=== PATIENT | female | born 2000 | race Caucasian/White ===

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

== ENCOUNTER 2020-02-19 12:38 | Emergency (ER) | payer BC ==
[2020-02-19] MEDS ORDERED: Sodium Chloride 0.9% 10 ML Syringe FLUSH PRN (12:50)
[2020-02-19] MEDS ORDERED: Sodium Chloride 0.9% 2.5 ML Syringe FLUSH PRN (12:50)
[2020-02-19] MEDS ORDERED: Ketorolac 30 MG/ML SDV IVPUSH ONE (12:52)
[2020-02-19] MEDS ORDERED: Ondansetron 4 MG/2 ML SDV IVPUSH ONE (12:55)
[2020-02-19] MEDS ORDERED: Acetaminophen/HYDROcodone 325-10 MG Tab PO ONE (12:57)
--- NOTE | 2020-02-19 12:59 | EDM.PDOC ---
ED HPI GENERAL MEDICAL PROBLEM - General Chief Complaint: Abdominal Pain Stated Complaint: ABDOMINAL AND BACK PAIN Time Seen by Provider: 02/19/20 12:43 - History of Present Illness INITIAL COMMENTS - FREE TEXT/NARRATIVE: History of present illness: [] Patient developed pain in the left lower quadrant yesterday. It became increasingly severe today it is constant and the gradual crescendo. Radiates to the left flank. Now it is a lot worse with movement. She is thrown up twice but not really nauseated. She thinks the vomiting was because of the pain. She has no change in bowel or bladder habits. She is breast-feeding and has not had a menstrual period nor had sexual contact since she had a baby 11 months ago. He was told she had crystals in his urine and might develop kidney stones shortly after the . Review of systems: As per history of present illness and below otherwise all systems reviewed and negative. Past medical history: As per history of present illness and as reviewed below otherwise noncontributory. Surgical history: As per history of present illness and as reviewed below otherwise noncontributory. Social history: No reported history of drug or alcohol abuse. Family history: As per history of present illness and as reviewed below otherwise noncontributory. Physical exam: Constitutional - well developed, well-nourished and in no acute distress HEENT - normocephalic, no evidence of trauma - external nose and mouth normal - no mass in neck and no JVD - mucosae moist EYES - full EOM, PERRL, no icterus - no evidence of inflammation, injection, or drainage Respiratory - no respiratory distress, equal bilateral expansion, lungs clear to auscultation and no abnormal lung sounds Cardiovascular - Regular Rhythm with S1 and S2 appreciated and no murmur, gallop or rub. GI - abdomen is in the suprapubic area both lower quadrants. Soft without distension or organomegaly - normal bowel sounds - no guard or rebound -bi manual exam there is some tenderness around the left adnexa but the cervix uterus and right adnexa are not tender. The abdomen above the knee of the adnexa is more tender than the adnexa. Musculoskeletal no gross deformity of long bones or joints - no tenderness, swelling or edema Neurologic - Alert and oriented times four - CN II-XII grossly intact - motor sensory and coordination symmetrically normal Psychiatric - appropriate mood and affect with normal thought content Hematologic - No petechiae or purpura - mucosa appropriate color and sclera not pale - normal nail bed color and refill Integument - no rash or evidence of trauma - normal turgor Diagnostics: [] Therapeutics: [] Impression: [] Plan: [] Definitive disposition and diagnosis as appropriate pending reevaluation and review of above. llq Pain Score (Numeric/FACES): 9 - Related Data Allergies Allergy/AdvReac Type Severity Reaction Status Date / Time No Known Allergies Allergy Verified 02/19/20 13:02 Home Meds: Home Meds Acetaminophen/HYDROcodone [[place] 325-7.5 MG] 1 - 2 tab PO Q6H PRN #14 tab 02/19/20 [Rx] Tamsulosin [Tamsulosin 24 Hr] 0.4 mg PO DAILY #15 cap.er 02/19/20 [Rx] ED ROS GENERAL - Review of Systems Review Of Systems: Comprehensive ROS is negative, except as noted in HPI. ED EXAM, GENERAL - Physical Exam Exam: See Below Free Text/Narrative:: Physical exam as in the HPI Course - Vital Signs Last Recorded V/S: Last Vital Signs Temp 36.6 C 02/19/20 14:48 Pulse 64 02/19/20 14:48 Resp 16 02/19/20 14:48 BP 107/66 02/19/20 14:48 Pulse Ox 100 02/19/20 14:48 - Orders/Labs/Meds Orders: Active Orders 24 hr Category Date Time Status Saline Lock Insert [OM.PC] Stat Oth 02/19/20 12:50 Ordered Labs: Laboratory Tests 02/19/20 02/19/20 02/19/20 Range/Units 12:49 12:49 12:49 WBC 6.65 (4.0-11.0) K/uL RBC 4.41 (4.30-5.90) M/uL Hgb 12.5 (12.0-16.0) g/dL Hct 39.3 (36.0-46.0) % MCV 89.1 (80.0-98.0) fL MCH 28.3 (27.0-32.0) pg MCHC 31.8 (31.0-37.0) g/dL RDW Std Deviation 42.1 (28.0-62.0) fl RDW Coeff of Sadaf 13 (11.0-15.0) % Plt Count 353 (150-400) K/uL MPV 9.70 (7.40-12.00) fL Neut % (Auto) 52.6 (48.0-80.0) % Lymph % (Auto) 34.3 (16.0-40.0) % [place] % (Auto) 8.1 (0.0-15.0) % Eos % (Auto) 4.5 (0.0-7.0) % Baso % (Auto) 0.5 (0.0-1.5) % Neut # (Auto) 3.5 (1.4-5.7) K/uL Lymph # (Auto) 2.3 (0.6-2.4) K/uL [place] # (Auto) 0.5 (0.0-0.8) K/uL Eos # (Auto) 0.3 (0.0-0.7) K/uL Baso # (Auto) 0.0 (0.0-0.1) K/uL Nucleated RBC % 0.0 /100WBC Nucleated RBCs # 0 K/uL Sodium 142 (136-145) mmol/L Potassium 4.1 (3.5-5.1) mmol/L Chloride 105 (98-107) mmol/L Carbon Dioxide 29.4 (21.0-32.0) mmol/L BUN 14 (7.0-18.0) mg/dL Creatinine 1.0 (0.6-1.0) mg/dL Est Cr Clr Drug Dosing 69.51 mL/min Estimated GFR (MDRD) > 60.0 ml/min Glucose 85 (74-106) mg/dL Calcium 9.3 (8.5-10.1) mg/dL Total Bilirubin 0.5 (0.2-1.0) mg/dL AST 21 (15-37) IU/L ALT 23 (14-63) IU/L Alkaline Phosphatase 94 (46-116) U/L Total Protein 7.4 (6.4-8.2) g/dL Albumin 4.1 (3.4-5.0) g/dL Globulin 3.3 (2.6-4.0) g/dL Albumin/Globulin Ratio 1.2 (0.9-1.6) Urine Color YELLOW Urine Appearance CLEAR Urine pH 6.0 (5.0-8.0) Ur Specific [place] 1.025 (1.001-1.035) Urine Protein NEGATIVE (NEGATIVE) mg/dL Urine Glucose (UA) NEGATIVE (NEGATIVE) mg/dL Urine Ketones NEGATIVE (NEGATIVE) mg/dL Urine Occult Blood LARGE H (NEGATIVE) Urine Nitrite NEGATIVE (NEGATIVE) Urine Bilirubin NEGATIVE (NEGATIVE) Urine Urobilinogen 0.2 (<2.0) EU/dL Ur Leukocyte Esterase NEGATIVE (NEGATIVE) Urine RBC 5-10 (0-2/HPF) Urine WBC 0-2 (0-5/HPF) Ur Epithelial Cells FEW (NONE-FEW) Urine Bacteria FEW (NEGATIVE) Urinalysis Comment Urine HCG, Qual (NEGATIVE) 02/19/20 Range/Units 12:49 WBC (4.0-11.0) K/uL RBC (4.30-5.90) M/uL Hgb (12.0-16.0) g/dL Hct (36.0-46.0) % MCV (80.0-98.0) fL MCH (27.0-32.0) pg MCHC (31.0-37.0) g/dL RDW Std Deviation (28.0-62.0) fl RDW Coeff of Sadaf (11.0-15.0) % Plt Count (150-400) K/uL MPV (7.40-12.00) fL Neut % (Auto) (48.0-80.0) % Lymph % (Auto) (16.0-40.0) % [place] % (Auto) (0.0-15.0) % Eos % (Auto) (0.0-7.0) % Baso % (Auto) (0.0-1.5) % Neut # (Auto) (1.4-5.7) K/uL Lymph # (Auto) (0.6-2.4) K/uL [place] # (Auto) (0.0-0.8) K/uL Eos # (Auto) (0.0-0.7) K/uL Baso # (Auto) (0.0-0.1) K/uL Nucleated RBC % /100WBC Nucleated RBCs # K/uL Sodium (136-145) mmol/L Potassium (3.5-5.1) mmol/L Chloride (98-107) mmol/L Carbon Dioxide (21.0-32.0) mmol/L BUN (7.0-18.0) mg/dL Creatinine (0.6-1.0) mg/dL Est Cr Clr Drug Dosing mL/min Estimated GFR (MDRD) ml/min Glucose (74-106) mg/dL Calcium (8.5-10.1) mg/dL Total Bilirubin (0.2-1.0) mg/dL AST (15-37) IU/L ALT (14-63) IU/L Alkaline Phosphatase (46-116) U/L Total Protein (6.4-8.2) g/dL Albumin (3.4-5.0) g/dL Globulin (2.6-4.0) g/dL Albumin/Globulin Ratio (0.9-1.6) Urine Color Urine Appearance Urine pH (5.0-8.0) Ur Specific [place] (1.001-1.035) Urine Protein (NEGATIVE) mg/dL Urine Glucose (UA) (NEGATIVE) mg/dL Urine Ketones (NEGATIVE) mg/dL Urine Occult Blood (NEGATIVE) Urine Nitrite (NEGATIVE) Urine Bilirubin (NEGATIVE) Urine Urobilinogen (<2.0) EU/dL Ur Leukocyte Esterase (NEGATIVE) Urine RBC (0-2/HPF) Urine WBC (0-5/HPF) Ur Epithelial Cells (NONE-FEW) Urine Bacteria (NEGATIVE) Urinalysis Comment Urine HCG, Qual NEGATIVE (NEGATIVE) Meds: Medications Discontinued Medications Generic Name Dose Route Start Last Admin Trade Name Freq PRN Reason Stop Dose Admin Hydrocodone Bitart/Acetaminophen 1 tab 02/19/20 12:57 02/19/20 13:43 [place] 325-10 Mg PO 02/19/20 12:58 Not Given ONETIME ONE Hydromorphone HCl 1 mg 02/19/20 13:47 02/19/20 13:54 Dilaudid IVPUSH 02/19/20 13:48 1 mg ONETIME ONE Administration Sodium Chloride 1,000 mls @ 999 mls/hr 02/19/20 13:46 02/19/20 13:53 Normal Saline IV 02/19/20 14:46 999 mls/hr .Bolus ONE Administration Ketorolac Tromethamine 15 mg 02/19/20 12:52 02/19/20 12:59 Toradol IVPUSH 02/19/20 12:53 15 mg ONETIME ONE Administration Ondansetron HCl 4 mg 02/19/20 12:55 02/19/20 13:03 Zofran IVPUSH 02/19/20 12:56 4 mg ONETIME ONE Administration Sodium Chloride 10 ml 02/19/20 12:50 02/19/20 13:00 Saline Flush FLUSH 10 ml ASDIRECTED PRN Administration Keep Vein Open Sodium Chloride 2.5 ml 02/19/20 12:50 02/19/20 13:00 Saline Flush FLUSH 2.5 ml ASDIRECTED PRN Administration Keep Vein Open Tamsulosin HCl 0.4 mg 02/19/20 13:47 02/19/20 13:54 Flomax PO 02/19/20 13:48 0.4 mg ONETIME ONE Administration Departure - Departure Time of Disposition: 14:52 Disposition: Home, Self-Care 01 Clinical Impression: Pulmonary nodule less than 1 cm in diameter with low risk for malignant neoplasm, Ureter colic, Ureteral stone with hydronephrosis - Discharge Information Prescriptions: Tamsulosin [Tamsulosin 24 Hr] 0.4 mg PO DAILY #15 cap.er Acetaminophen/HYDROcodone [[place] 325-7.5 MG] 1 - 2 tab PO Q6H PRN #14 tab PRN Reason: Pain (Severe 7-10) Instructions: Kidney Stones, [id number], Pulmonary Nodule, [id number] Referrals: Trinh Travis NP [Primary Care Provider] - Melanie Shafer MD [Physician] - Forms: ED Department Discharge Additional Instructions: [facility] - Primary Care [address] [place] [address] [address] [facility] - Urology [address] [place] [id number] The following information is given to patients seen in the emergency department who are being discharged to home. This information is to outline your options for follow-up care. We provide all patients seen in our emergency department with a follow-up referral. The need for follow-up, as well as the timing and circumstances, are variable depending upon the specifics of your emergency department visit. If you don't have a primary care physician on staff, we will provide you with a referral. We always advise you to contact your personal physician following an emergency department visit to inform them of the circumstance of the visit and for follow-up with them and/or the need for any referrals to a consulting specialist. The emergency department will also refer you to a specialist when appropriate. This referral assures that you have the opportunity for follow-up care with a specialist. All of these measure are taken in an effort to provide you with opt imal care, which includes your follow-up. Under all circumstances we always encourage you to contact your private physician who remains a resource for coordinating your care. When calling for follow-up care, please make the office aware that this follow-up is from your recent emergency room visit. If for any reason you are refused follow-up, please contact the [facility] Emergency Department at and asked to speak to the emergency department charge nurse. Sepsis Event Note (ED) - Focused Exam Vital Signs: Vital Signs Temp Pulse Resp BP Pulse Ox 02/19/20 14:48 36.6 C 64 16 107/66 100 02/19/20 13:58 58 L 16 124/76 99 02/19/20 12:44 36.8 C 71 16 120/73 99 - My Orders Last 24 Hours: My Active Orders 02/19/20 12:50 Saline Lock Insert [OM.PC] Stat - Assessment/Plan Last 24 Hours: My Active Orders 02/19/20 12:50 Saline Lock Insert [OM.PC] Stat
[2020-02-19 13:14] LABS: BLOOD UREA NITROGEN,BUN 14 mg/dL (7.0-18.0); CARBON DIOXIDE,CO2 29.4 mmol/L (21.0-32.0); CHLORIDE,CL 105 mmol/L (98-107); GLUCOSE RANDOM 85 mg/dL (74-106); POTASSIUM,K 4.1 mmol/L (3.5-5.1); SODIUM,NA 142 mmol/L (136-145)
[2020-02-19] MEDS ORDERED: Sodium Chloride 0.9% 1,000 ML IV ONE (13:46)
[2020-02-19] MEDS ORDERED: Tamsulosin 0.4 MG Cap.ER PO ONE (13:47)
[2020-02-19] MEDS ORDERED: HYDROmorphone 1 MG/ML Syringe IVPUSH ONE (13:47)
--- NOTE | 2020-02-19 13:53 | CT ---
Indication: Severe left lower quadrant pain that radiates to flank TECHNIQUE: Noncontrast CT abdomen and pelvis with coronal and sagittal reformatted images obtained No comparison studies are available Findings: Heart size normal. No pericardial effusion. Subpleural 4 millimeter left lower lobe pulmonary nodule series 201, image 9. No effusion. Enhanced liver adrenal glands are unremarkable. Normal caliber abdominal aorta. Gallbladder is unremarkable spleen appears unremarkable. Nonobstructing small left renal calculi. There is moderate hydronephrosis and hydroureter on the left with a distal 4 millimeter stone just proximal to the UVJ. Urinary bladder is partially decompressed but grossly unremarkable. The right kidney is unremarkable. Bowel is unremarkable. Normal appendix. No suspicious bony lesions. Impression: 1. 4 millimeter left distal ureteral stone just proximal to the UVJ causing moderate hydronephrosis and hydroureter. 2. 4 millimeter subpleural left lower lobe pulmonary nodule. Please note that all CT scans at this facility use dose modulation, iterative reconstruction, and/or weight-based dosing when appropriate to reduce radiation dose to as low as reasonably achievable. Dictated by Stacie Rene MD @ Feb 19 2020 1:44PM Signed by Dr. Stacie Rene @ Feb 19 2020 1:50PM
== END 2020-02-19 14:48 | disposition home or self-care (01) ==
LOC: MW.ED 12:38
DX: N13.2 Hydronephrosis with renal and ureteral calculous obstruction (principal); R91.1 Solitary pulmonary nodule
CPT/HCPCS: 36415; 74176; 80053; 81001; 81025; 85025; 96374; 96375; 99284; A9270; J1170; J1885; J2405; J7030; 99283

== ENCOUNTER 2020-10-06 19:38 | Emergency (ER) | payer BC ==
--- NOTE | 2020-10-06 19:50 | EDM.PDOC ---
ED HPI GENERAL MEDICAL PROBLEM - General Chief Complaint: General Stated Complaint: FEELING SICK Time Seen by Provider: 10/06/20 19:39 Source of Information: Reports: Patient History Limitations: Reports: No Limitations - History of Present Illness INITIAL COMMENTS - FREE TEXT/NARRATIVE: HISTORY AND PHYSICAL: History of present illness: Patient is a 20-year-old female who presents to the emergency room with complaints of sore throat, cough, body aches and mild shortness of breath x 3 -4 days. Patient denies any fever, chills, headache, change in vision, syncope or near syncope. Denies any chest pain, back pain, abdominal pain, nausea, vomiting, diarrhea, constipation or dysuria. Denies any concern for . Has no concern for . Has not noted any blood in urine or stool. Patient has been eating and drinking appropriately. Review of systems: As per history of present illness and below otherwise all systems reviewed and negative. Past medical history: As per history of present illness and as reviewed below otherwise noncontributory. Surgical history: As per history of present illness and as reviewed below otherwise noncontributory. Social history: See social history for further information Family history: As per history of present illness and as reviewed below otherwise noncontributory. Physical exam: General: Well developed and well nourished. Alert and orientated x 3. Nontoxic in appearance and in no acute distress. Vital signs are stable and have been reviewed by me. Nursing notes were reviewed. HEENT: Atraumatic, normocephalic, pupils equal and reactive bilaterally, negative for conjunctival pallor or scleral icterus, mucous membranes moist, TMs normal bilaterally, throat clear, neck supple, nontender, trachea midline. No drooling or trismus noted. No meningeal signs. No hot potato voice noted. Lungs: Clear to auscultation bilaterally. No wheezes, rales, or rhonchi. Chest nontender. Normal work of breathing, no accessory muscles used. Heart: S1S2, regular rate and rhythm without overt murmur, gallops, or rubs. No JVD. No peripheral edema Abdomen: Soft, nondistended, nontender. Normoactive bowel sounds. Negative for masses or costovertebral tenderness. Skin: Intact, warm, dry. No lesions or rashes noted. Hematologic: No petechiae or purpra. Mucosa appropriate color and normal nail bed color and refill. Extremities: Atraumatic, moves all extremities per self without difficulty or deficits, negative for cords or calf pain. Neurovascular unremarkable. Neuro: Awake, alert, oriented. Cranial nerves II through XII unremarkable. Cerebellum unremarkable. Motor and sensory unremarkable throughout. Exam nonfocal. Psychiatric: Mood and affect are appropriate. Normal thought process. Answering questions appropriately. Notes: *This patient was seen and evaluated during the 2019 SARS-CoV-2 novel coronavirus pandemic period. Community viral transmission is ongoing at time of this encounter and the emergency department is operating under pandemic response procedures. I have talked with the patient about today's findings, in addition to providing specific details for plan of care. Reassessment at the time of disposition demonstrates that the patient is in no acute distress. The patient is stable for discharge, counseling was provided and we discussed in great detail signs and symptoms that would prompt them to return to the Emergency Department. Medication, follow up and supportive care measures were reviewed and discussed. Voices understanding and is agreeable to plan of care. Denies any further questions or concerns at this time. Diagnostics: Strep, COVID, chest x-ray Therapeutics: None Prescription: Tonya Falcon Impression: Bronchitis Plan: 1. You were evaluated today on an emergent basis. Your COVID and Strep screening are negative. Will treat you for bronchitis. Take the medications as directed. 2. You can alternate Tylenol and ibuprofen as needed for pain and fever oswald gement. 3. We encourage you to follow up with your primary care provider and/or recommended specialist in the next few days for re-evaluation and further care/management. 4. If your symptoms should worsen, new symptoms develop or any of the signs and symptoms we discussed should arise please return to the emergency room or call 911 (if needed). Definitive disposition and diagnosis as appropriate pending reevaluation and review of above. 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 ED EXAM, GENERAL - Physical Exam Exam: See Below (See dictation) Course - Vital Signs Last Recorded V/S: Last Vital Signs Temp 98.0 F 10/06/20 19:47 Pulse 77 10/06/20 19:47 Resp 17 10/06/20 19:47 BP 113/65 10/06/20 19:47 Pulse Ox 98 10/06/20 19:47 - Orders/Labs/Meds Orders: Active Orders 24 hr Category Date Time Status Chest 1V Frontal [CR] Stat Exams 10/06/20 19:54 Taken Labs: Laboratory Tests 10/06/20 10/06/20 Range/Units 20:00 20:00 SARS-CoV-2 RNA (DAMIAN) NEGATIVE (NEGATIVE) Group A Strep (PCR) NOT DETECTED (NOT DETECT) Departure - Departure Time of Disposition: 20:58 Disposition: Home, Self-Care 01 Clinical Impression: Bronchitis - Discharge Information Prescriptions: Azithromycin [Zithromax] 1 dose PO DAILY 5 Days #6 tab Instructions: Acute Bronchitis, Adult, [id number] Referrals: PCP,None [Primary Care Provider] - Forms: ED Department Discharge Additional Instructions: The following information is given to patients seen in the emergency department who are being discharged to home. This information is to outline your options for follow-up care. We provide all patients seen in our emergency department with a follow-up referral. The need for follow-up, as well as the timing and circumstances, are variable depending upon the specifics of your emergency department visit. If you don't have a primary care physician on staff, we will provide you with a referral. We always advise you to contact your personal physician following an emergency department visit to inform them of the circumstance of the visit and for follow-up with them and/or the need for any referrals to a consulting specialist. The emergency department will also refer you to a specialist when appropriate. This referral assures that you have the opportunity for follow-up care with a specialist. All of these measure are taken in an effort to provide you with optimal care, which includes your follow-up. Under all circumstances we always encourage you to contact your private physician who remains a resource for coordinating your care. When calling for follow-up care, please make the office aware that this follow-up is from your recent emergency room visit. If for any reason you are refused follow-up, please contact the [facility] Emergency Department at and asked to speak to the emergency department charge nurse. [facility] Primary Care [address] [place] [id number] [facility] [address] [place] [id number] Thank you for choosing the [facility] emergency department in [place] for your medical needs today. It was a pleasure caring for you. Today you were seen in the emergency department for cough and sore throat. 1. You were evaluated today on an emergent basis. Your COVID and Strep screening are negative. Will treat you for bronchitis. Take the medications as directed. 2. You can alternate Tylenol and ibuprofen as needed for pain and fever management. 3. We encourage you to follow up with your primary care provider and/or recommended specialist in the next few days for re-evaluation and further care/management. 4. If your symptoms should worsen, new symptoms develop or any of the signs and symptoms we discussed should arise please return to the emergency room or call 911 (if needed). Sepsis Event Note (ED) - Focused Exam Vital Signs: Vital Signs Temp Pulse Resp BP Pulse Ox 10/06/20 19:47 98.0 F 77 17 113/65 98 - My Orders Last 24 Hours: My Active Orders 10/06/20 19:54 Chest 1V Frontal [CR] Stat - Assessment/Plan Last 24 Hours: My Active Orders 10/06/20 19:54 Chest 1V Frontal [CR] Stat
--- NOTE | 2020-10-06 21:10 | CR ---
For Patients: As a result of the Cures Act, medical imaging exams and procedure reports are released immediately into your electronic medical record. You may view this report before your referring provider. If you have questions, please contact your health care provider. INDICATION: Chest congestion TECHNIQUE: Chest radiograph 1 view COMPARISON: None FINDINGS: Mediastinum: The mediastinum is normal in appearance. The heart silhouette is normal in size and morphology. Lung: Both lungs are unremarkable in appearance. No sign of pleural effusion seen. No pneumothorax is identified. Bone and Soft tissue: Unremarkable for age. IMPRESSION: 1. No acute cardiopulmonary disease is seen. Dictated by: Bruce Keita MD @ 10/06/2020 21:09:34 (Electronically Signed)
== END 2020-10-06 21:00 | disposition home or self-care (01) ==
LOC: MW.ED 19:38
DX: J40 Bronchitis, not specified as acute or chronic (principal); Z20.822 Contact with and (suspected) exposure to COVID-19
CPT/HCPCS: 71045; 71045-26; 87651-QW; 99283-25; U0002